=== PATIENT | female | born 1960 | race African-American/Black ===

== ENCOUNTER 2018-04-25 08:56 | Day surgery (SDC) | payer OTHER ==
[2018-04-24 10:19] VITALS: BMI 39.7
[2018-04-25] MEDS ORDERED: MIDAZOLAM HCL 2 MG/2 ML SINGLE DOSE VIAL ONE (10:20)
[2018-04-25] MEDS ORDERED: ONDANSETRON 4 MG/2 ML VIAL IVPUSH PRN ×2 (10:30→11:12)
[2018-04-25] MEDS ORDERED: LACTATED RINGERS SOLUTION 1,000 ML IV SCH (10:30)
[2018-04-25] MEDS ORDERED: oxyCODONE HCL 5 MG TABLET PO PRN ×2 (10:30→11:12)
--- NOTE | 2018-04-25 11:10 | HP ---
History & Physical Update - History History: No Change - Physical Physical: No Change - Assessment Assessment: No Change - Plan Plan: No Change (Unchanged H&P since 04/06/18 Consent signed and witnessed)
--- NOTE | 2018-04-25 11:10 | OP ---
Operative Note - Note: Operative Date: 04/25/18 Pre-Operative Diagnosis: 57 yo with HGSIL and HPV positive, mainly in the cervical canal. Operation: Cone biopsy, ECC, EMC Findings: Lugols poor medicinal plant picker on the ectocervix Atrophic vagina and cervix Post-Operative Diagnosis: Same as Pre-op Surgeon: Veronique Bose Anesthesiologist/STAFF DEVELOPMENT COORDINATOR: Brenden Dyer Anesthesia: General, MAC Specimens Removed: 1. Ectocervix. 2. Top Hat. 3. Deep Endocervix. 4. ECC. 5. EMC. 6. Urine culture sent Estimated Blood Loss (mls): 0 Drains, Volume Out (mls): 80 Fluid Volume Replaced (mls): 700 Operative Report Dictated: Yes
[2018-04-25] MEDS ORDERED: IBUPROFEN 800 MG/8 ML IJ IVPB PRN (11:12)
[2018-04-25] MEDS ORDERED: IBUPROFEN 600 MG TABLET (FP) PO PRN (11:12)
[2018-04-25] MEDS ORDERED: ELECTROLYTE-148 SOLN 1,000 ML IV SCH (11:15)
[2018-04-25] MEDS ORDERED: IODINE/POTASSIUM IODIDE 5%/10% 14 ML BOTTLE NR ONE (12:40)
[2018-04-25] MEDS ORDERED: IBUPROFEN 600 MG TABLET (FP) PO ONE (14:19)
[2018-04-25 15:09] VITALS: BP 119/75; PULSE 74; TEMP 98.3
--- NOTE | 2018-04-28 17:18 | PATH ---
Surgical Pathology Report Patient Name: TANA LOW [facility]. Rec. #: [id number] /Age/Gender: 1960 (Age: 57) / F Account: [id number] Location: [facility] SURGICAL Taken: 04/25/2018 Received: 04/25/2018 Reported: 04/28/2018 Physicians: Veronique Bose M.D. Specimen(s) Received A: ECTOCERVIX LEEP CONE BIOPSY B: TOP HAT CERVIX LEEP CONE BIOPSY C: ENDOCERVIX DEEPER LEEP CONE BIOPSY D: ENDOCERVICAL CURETTINGS E: ENDOMETRIAL CURETTINGS Clinical History High grade squamous intraepithelial lesion on cytologic smear of cervix Final Diagnosis A. ECTOCERVIX, LOOP ELECTROSURGICAL EXCISION PROCEDURE (LEEP) CONE BIOPSY: LOW GRADE SQUAMOUS INTRAEPITHELIAL LESION (CERVICAL INTRAEPITHELIAL NEOPLASIA 1/DAY-1), INVOLVING QUADRANTS: 12-3:00, 9-12:00, AND INVOLVING A FOCALLY DETACHED FRAGMENT. REMAINDER OF CERVICAL TISSUE SHOWS ACUTE AND CHRONIC CERVICITIS, MARKED DENUDED EPITHELIUM, FOCAL SQUAMOUS METAPLASIA, AND REACTIVE CHANGES. SURGICAL RESECTION MARGINS: CANNOT BE FULLY ASSESSED. SEE COMMENT TRANSFORMATION ZONE: NOT PRESENT. B. CERVIX, TOP HAT, LOOP ELECTROSURGICAL EXCISION PROCEDURE (LEEP) CONE BIOPSY: FRAGMENTS OF BENIGN ENDOCERVICAL MUCOSA. RARE DETACHED AGGREGATE OF SQUAMOUS METAPLASTIC CELLS ADMIXED WITH MUCUS. NO DYSPLASIA IDENTIFIED. C. ENDOCERVIX, DEEPER, LOOP ELECTROSURGICAL EXCISION PROCEDURE (LEEP) CONE BIOPSY: FRAGMENTS OF BENIGN ENDOCERVICAL MUCOSA. RARE DETACHED AGGREGATE OF SQUAMOUS METAPLASTIC CELLS ADMIXED WITH MUCUS. NO DYSPLASIA IDENTIFIED. D. ENDOCERVICAL CURETTING, DILATION AND CURETTAGE: FRAGMENTS OF BENIGN ENDOCERVICAL POLYP. E. ENDOMETRIAL CURETTINGS, DILATION AND CURETTAGE: FRAGMENTS OF INACTIVE ENDOMETRIUM, AND BENIGN CERVICAL TISSUE. Comment: Part A, Due to focal detached nature of the lesion (LSIL), surgical margins cannot be fully evaluated. P16 shows weak focal staining. Immunohistochemical stains performed at [place], [place] ([id number]) and interpreted at [facility] on blocks A4, B1, C4 and E1, for P16 and [id number] were utilized to evaluate this case. Suggest clinical correlation. Electronically Signed Kelly Martell M.D. Gross Description A. Received in formalin labeled "ectocervix LEEP cone biopsy," are 2 portions of an oriented cervical LEEP cone biopsy measuring 1.5 x 1.4 x 0.3 cm and 1.7 x 0.6 x 0.2 cm. There is a single stitch marking the 12:00 aspect and a double stitch marking the 6:00 aspect of the cervix, per the surgeon. The specimen is partially surfaced by a swan-pink mucosa. The specimen is inked blue, serially sectioned and entirely submitted in 4 cassettes as follows: 1-12:00 to 3:00; 2-3:00 to 6:00; 3-6:00 to 9:00; 4-9:00 to 12:00. B. Received in formalin labeled "top hat cervix LEEP cone biopsy," are 2 unoriented portions of tissue, consistent with portions of cervix measuring 0.8 x 0.6 x 0.4 cm and 0.9 x 0.6 x 0.5 cm. The specimens are inked blue, serially sectioned and entirely submitted in 2 cassettes. C. Received in formalin labeled "endocervix deeper LEEP cone biopsy," are 4 swan, unoriented and undesignated portions of tissue, consistent with portions of cervix. The specimens range from 0.7 x 0.5 x 0.1 cm to 1.1 x 0.5 x 0.3 cm. The specimens are inked blue, serially sectioned and entirely submitted in 4 cassettes. D. Received in formalin labeled "endocervical curettings," is a 1.4 x 0.7 x 0.2 cm aggregate of swan-pink soft tissue fragments admixed with blood-tinged mucous. The formalin is filtered and the specimen is entirely submitted in one cassette. E. Received in formalin labeled "endometrial curettings," is a 1.1 x 0.8 x 0.2 cm aggregate of blood-tinged mucus, possibly containing soft tissue fragments. The formalin is filtered and the specimen is entirely submitted in one cassette. 04/25/201804/25/2018
--- NOTE | 2018-04-30 21:53 | OP ---
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 OPERATION: Cone biopsy, endocervical curettage, endometrial curettage. FINDINGS: Lugol showed poor uptake on ectocervix as well. Atrophic vagina and cervix. 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 SURGEON: Veronique Bose MD ANESTHESIOLOGIST: Brenden Dyer MD ANESTHESIA: MAC. SPECIMENS REMOVED: Ectocervix, top hat, deep endocervix, ECC, EMC, and urine culture was sent during the procedure. DESCRIPTION OF OPERATIVE PROCEDURE: After assuring informed consent, the patient was brought to the operating room where she was placed in dorsal lithotomy position. Perineum and vagina were prepped and draped in the sterile fashion. Carrasquillo retractors were used to visualize the cervix, but subsequently the coated speculum was used to visualize the cervix. Cervix was prepped and covered with Lugol solution and ectocervical poor uptake area was visualized. Two x 1 cm loop was used to resect the ectocervix. Subsequently, the deeper resection of the top hat was performed by using 1 x 1 cm loop. Subsequently, the cautery tip was used to resect even further within the endocervical canal to create a deep endocervical sample. After resection was complete and cervical resection base was cauterized with roller ball, an excellent hemostasis was accomplished. The 0-gauge surgical curette was used to collect endocervical curettings and a 1-gauge curette was used to collect endometrial curettings. Excellent hemostasis was achieved with roller ball cautery. Estimated blood loss was 0 mL. Patient had 80 mL of urine drained prior to the beginning of the procedure and received 700 mL of IV fluids. All sponge and instrument counts were correct x2. Patient was brought to the recovery room in stable condition. Patria [id number]
== END 2018-04-25 15:25 | disposition home or self-care (01) ==
LOC: JASU-SURG 08:56
PROVIDERS: ATTEND Obstetrics & Gynecology
PROC: 0UBC7ZX Excision of Cervix, Via Natural or Artificial Opening, Diagnostic (ICD-10-PCS; principal; 2018-04-25 11:30)
DX: N87.0 Mild cervical dysplasia (principal); N72 Inflammatory disease of cervix uteri; R87.810 Cervical high risk human papillomavirus (HPV) DNA test positive; N95.2 Postmenopausal atrophic vaginitis
CPT/HCPCS: 71046-TC-FY; 82962; 86850; 86900; 86901; 87086; 88305-TC; 88307-TC; 94760